=== PATIENT | male | born 1960 | race Caucasian/White ===

== ENCOUNTER 2020-07-27 09:48 | Inpatient (IN) | payer OTHER ==
[~2020-07-27] VITALS: Ht 188 cm; Wt 97.5 kg
[2020-07-27] MEDS ORDERED: SYNTHROID112 MCG ORAL (10:04)
[2020-07-27] MEDS ORDERED: BUPROPION XL300 MG ORAL (10:04)
[2020-07-27 10:09] VITALS: BP 113/71
--- NOTE | 2020-07-27 10:12 | NUR ---
ED Nurse Note: Patient walked in to ER c/o mid lower abd pain onset today at 0200. Patient reports eating frozen food at night prior to the start of the s/sx. Patient reports nausea and one emesis prior to arrival today. denies fever or cough. Presented AAO x4, VSS at this time.
[2020-07-27] MEDS ORDERED: DiphenhydrAMINE 50mg/ml Inj IVP ONE (10:30)
[2020-07-27] MEDS ORDERED: Metoclopramide 10mg/2ml Inj IVP ONE (10:30)
[2020-07-27] MEDS ORDERED: Morphine Sulfate 4mg/ml Inj (IV USE ONLY) IVP ONE (10:30)
--- NOTE | 2020-07-27 10:37 | Emergency Room Report ---
History of Present Illness General Chief Complaint: Abdominal Pain Source: Patient Present Illness HPI Patient woke up at 2 AM with right sided lower abdominal pain. The pain is constant and worsened. He rates the pain 7 or 8 at this time. Does not radiate. He is never had pain like this before. He tried to vomit but did not. He moved his bowels in 6 AM and they were normal without any blood. He denies any dysuria. The patient did not take any medication. Patient is status post cholecystectomy. Patient denies exposure to Covid positive contacts. No fevers, chills, sore throat, chest pain, palpitations, shortness of breath, joint pain, rashes, depression, anxiety, visual changes, dizziness, headache. Allergies: Coded Allergies: No Known Allergies (Unverified , 07/27/20) COVID-19 Screening Contact w/high risk pt: No Experienced COVID-19 symptoms?: No COVID-19 Testing performed [employer]: Yes COVID-19 Screening: Negative COVID-19 COVID-19 Testing Source: NEG Patient History Past Medical History: see triage record Past Surgical History: christopher Social History: Denies: smoking Social History Narrative Patient from home Reviewed Nursing Documentation: PMH: Agreed; PSxH: Agreed Nursing Documentation-PMH History Of Psychiatric Problem: Yes - depression Review of Systems All Other Systems: negative except mentioned in HPI Physical Exam Vital Signs Date Time Temp Pulse Resp B/P (MAP) Pulse Ox O2 Delivery O2 Flow Rate FiO2 07/27/20 09:50 97.7 58 18 113/71 (85) 99 Room Air Sp02 EP Interpretation: reviewed, normal General Appearance: well appearing, no apparent distress, GCS 15 Head: normocephalic Eyes: bilateral eye normal inspection, bilateral eye PERRL, bilateral eye EOMI ENT: moist mucus membranes Neck: supple Respiratory: lungs clear, normal breath sounds Cardiovascular #1: regular rate, rhythm Cardiovascular #2: 2+ radial (R) Gastrointestinal: normal inspection, normal bowel sounds, no mass, non- distended, guarding, rebound, tenderness - Right lower quadrant Genitourinary: no CVA tenderness Musculoskeletal: back normal, normal range of motion, gait/station normal Neurologic: alert, oriented x3, grossly normal Psychiatric: mood/affect normal Skin: no rash, warm/dry - Fully dressed Medical Decision Making Diagnostic Impression: Primary Impression: Acute appendicitis Qualified Codes: K35.80 - Unspecified acute appendicitis ER Course Patient presents with right lower quadrant pain began at 2 AM. Differential includes appendicitis, renal stone, urinary tract infection, diverticulitis and colitis amongst others. Evaluation with CT, EKG and labs.. Patient treated with IV hydration, Reglan, Benadryl and morphine. White count elevated. CMP unremarkable. Urinalysis unremarkable. EKG no injury. Patient still with pain after morphine. Dilaudid administered. CT scan with acute appendicitis. Rocephin ordered. Patient improved after Dilaudid. Admitted to the hospital and surgical con sultation requested. Laboratory Tests Test 07/27/20 10:33 White Blood Count 13.0 K/UL (4.8-10.8) H Red Blood Count 4.46 M/UL (4.70-6.10) L Hemoglobin 14.3 G/DL (14.2-18.0) Hematocrit 41.1 % (42.0-52.0) L Mean Corpuscular Volume 92 FL (80-99) Mean Corpuscular Hemoglobin 31.9 PG (27.0-31.0) H Mean Corpuscular Hemoglobin Concent 34.7 G/DL (32.0-36.0) Red Cell Distribution Width 12.9 % (11.6-14.8) Platelet Count 199 K/UL (150-450) Mean Platelet Volume 7.2 FL (6.5-10.1) Neutrophils (%) (Auto) % (45.0-75.0) Lymphocytes (%) (Auto) % (20.0-45.0) Monocytes (%) (Auto) % (1.0-10.0) Eosinophils (%) (Auto) % (0.0-3.0) Basophils (%) (Auto) % (0.0-2.0) Differential Total Cells Counted 100 Neutrophils % (Manual) 87 % (45-75) H Lymphocytes % (Manual) 10 % (20-45) L Monocytes % (Manual) 3 % (1-10) Eosinophils % (Manual) 0 % (0-3) Basophils % (Manual) 0 % (0-2) Band Neutrophils 0 % (0-8) Platelet Estimate Adequate Platelet Morphology Normal Red Blood Cell Morphology Normal Prothrombin Time 10.6 SEC (9.30-11.50) Prothrombin Time INR 1.0 (0.9-1.1) Activated Partial Thromboplast Time 23 SEC (23-33) Urine Color Yellow Urine Appearance Slightly cloudy Urine pH 5 (4.5-8.0) Urine Specific [place] 1.025 (1.005-1.035) Urine Protein 1+ (NEGATIVE) H Urine Glucose (UA) Negative (NEGATIVE) Urine Ketones Negative (NEGATIVE) Urine Blood 2+ (NEGATIVE) H Urine Nitrite Negative (NEGATIVE) Urine Bilirubin Negative (NEGATIVE) Urine Urobilinogen Normal MG/DL (0.0-1.0) Urine Leukocyte Esterase Negative (NEGATIVE) Urine RBC 0-2 /HPF (0 - 0) H Urine WBC 0 /HPF (0 - 0) Urine Squamous Epithelial Cells Occasional /LPF Urine Amorphous Sediment Many /LPF (NONE) H Urine Bacteria Occasional /HPF (NONE) Sodium Level 140 MMOL/L (136-145) Potassium Level 4.6 MMOL/L (3.5-5.1) Chloride Level 106 MMOL/L (98-107) Carbon Dioxide Level 29 MMOL/L (21-32) Anion Gap 5 mmol/L (5-15) Blood Urea Nitrogen 17 mg/dL (7-18) Creatinine 1.0 MG/DL (0.55-1.30) Estimated Glomerular Filtration Rate > 60 mL/min (>60) Glucose Level 130 MG/DL (74-106) H Calcium Level 9.1 MG/DL (8.5-10.1) Total Bilirubin 0.5 MG/DL (0.2-1.0) Aspartate Amino Transferase (AST) 26 U/L (15-37) Alanine Aminotransferase (ALT) 33 U/L (12-78) Alkaline Phosphatase 72 U/L (46-116) Total Protein 7.9 G/DL (6.4-8.2) Albumin 4.1 G/DL (3.4-5.0) Globulin 3.8 g/dL Albumin/Globulin Ratio 1.1 (1.0-2.7) Lipase 146 U/L (73-393) Microbiology Date/Time Source Procedure Growth Status 07/27/20 11:45 Nasopharynx SARS-CoV-2 RdRp Gene Assay - Final Complete EKG Diagnostic Results Rate: normal Rhythm: NSR ST Segments: no acute changes - Nonspecific interventricular block Rhythm Strip Diag. Results EP Interpretation: yes Rhythm: NSR, no PVC's, no ectopy CT/MRI/US Diagnostic Results CT/MRI/US Diagnostic Results : Imaging Test Ordered: Abdomen and pelvis Impression IMPRESSION: Inflamed appendix consistent with an acute appendicitis without free air or obstruction or abscess. Last Vital Signs Date Time Temp Pulse Resp B/P (MAP) Pulse Ox O2 Delivery O2 Flow Rate FiO2 07/27/20 14:40 98.0 71 16 122/69 (86) 97 07/27/20 14:33 Room Air Status: improved Disposition: ADMITTED INPATIENT Condition: Serious Referrals: NON PHYSICIAN (PCP) Roberto Marino MD Jul 27, 2020 10:37
--- NOTE | 2020-07-27 10:55 | NUR ---
ED Nurse Note: patient was taken to CT via delvisritzel
[2020-07-27 11:06] LABS: APPEARANCE,URINE SLIGHTLY CLOUDY; BILIRUBIN, URINE NEGATIVE (NEGATIVE); GLUCOSE, URINE (UA) NEGATIVE (NEGATIVE); KETONES,URINE NEGATIVE (NEGATIVE); LEUKOCYTE ESTERASE ,URINE NEGATIVE (NEGATIVE); NITRITE,URINE NEGATIVE (NEGATIVE); PH,URINE 5 (4.5-8.0); PROTEIN,URINE 1+ (NEGATIVE); UROBILINOGEN,URINE NORMAL MG/DL (0.0-1.0)
[2020-07-27 11:08] LABS: HEMATOCRIT 41.1 % (42.0-52.0); HEMOGLOBIN 14.3 G/DL (14.2-18.0); MEAN CORPUSCULAR VOLUME 92 FL (80-99); PLATELET COUNT 199 K/UL (150-450); RED BLOOD COUNT 4.46 M/UL (4.70-6.10); RED CELL DISTRIBUTION WIDTH 12.9 % (11.6-14.8)
[2020-07-27 11:19] LABS: ANION GAP 5 mmol/L (5-15); BLOOD UREA NITROGEN 17 mg/dL (7-18); CALCIUM 9.1 MG/DL (8.5-10.1); CARBON DIOXIDE 29 MMOL/L (21-32); CHLORIDE 106 MMOL/L (98-107); POTASSIUM 4.6 MMOL/L (3.5-5.1); SODIUM 140 MMOL/L (136-145)
[2020-07-27 11:24] LABS: ALANINE AMINOTRANSFERASE 33 U/L (12-78); ALBUMIN 4.1 G/DL (3.4-5.0); ALBUMIN/GLOBULIN RATIO 1.1 (1.0-2.7); ALKALINE PHOSPHATASE 72 U/L (46-116); ASPARTATE AMINO TRANSFERASE 26 U/L (15-37); BILIRUBIN,TOTAL 0.5 MG/DL (0.2-1.0)
--- NOTE | 2020-07-27 11:39 | Diagnostic Imaging Report ---
CT ABDOMEN + PELVIS Without Contrast HISTORY: Abdominal pain TECHNIQUE: One or more of the following dose reduction techniques were used: automated exposure control, adjustment of the mA and/or kV according to patient size, use of iterative reconstruction technique. Axial CT images of the abdomen and pelvis obtained without contrast with coronal and sagittal reconstructions. One or more of the following dose reduction techniques were used: automated exposure control, adjustment of the mA and/or kV according to patient size, use of iterative reconstruction technique. Total Exam volume computed tomography dose index (CTDIvol) = 9.4 mGy and Dose Length Product (DLP) = 510.5mGY-c COMPARISON: None FINDINGS: The lung bases are clear. The liver and spleen are normal in size and free of mass lesions. The bile ducts and pancreas are normal. The adrenal gland are unremarkable. The kidneys are normal in size and contour. No stones or hydronephrosis. Mildly inflamed appendix with adjacent stranding and appendiceal diameter of 1.2 cm. No free air or free fluid or bowel obstruction. Aorta is normal caliber. No adenopathy or extraluminal air. The osseous structures are intact. Status post cholecystectomy. Fixation hardware in the left femur. Small cyst in the left kidney noted measuring 1.3 cm. IMPRESSION: Inflamed appendix consistent with an acute appendicitis without free air or obstruction or abscess.
[2020-07-27 11:42] LABS: COLOR,URINE YELLOW
[2020-07-27] MEDS ORDERED: cefTRIAXone 1 GM in NS 55 ML IVPB ONE (12:00)
[2020-07-27] MEDS ORDERED: HYDROmorphone 1mg/ml Carpuject IVP ONE (12:00)
--- NOTE | 2020-07-27 14:13 | NUR ---
ED Nurse Note: report was given to KRISTEL Christie
--- NOTE | 2020-07-27 14:30 | NUR ---
NURSE NOTES: Patient received from ER via ravinger at 1430, on RA, in stable condition. Right lower abdominal pain 3/10, denies need for pain medication at this time. No NV. RAC saline lock intact, site asymptomatic. Skin assessed, no impairment. All belongings reviewed, signed by patient. Dr. Barbosa notified for admission orders. Oriented patient to room, medical equipment and call light, verbalized understanding. Call light in reach, bed in lowest position, will continue to monitor.
--- NOTE | 2020-07-27 14:31 | NUR ---
ED Nurse Note: Patient was transfered to MS unit due to apendisitis. Patient was transfered to thr unit via gurney with all belongings. Patient AAO x4, VSS at this time, skin is intact warm to touch.
[2020-07-27 14:40] VITALS: BP 122/69
[2020-07-27 16:00] VITALS: BP 130/72
--- NOTE | 2020-07-27 16:20 | NUR ---
NURSE NOTES: Discussed with pharmacy, home medications have not been taken yet and patient hasn't eaten anything yet either, okay for synthroid and wellbutrin, patient aware verbalized understanding.
[2020-07-27] MEDS: BuPROPion XL 150mg tab ORAL SCH (16:34)
[2020-07-27] MEDS ORDERED: Morphine Sulfate 2mg/ml Inj(IV/IM USE ONLY) IVP PRN (18:15)
--- NOTE | 2020-07-27 18:19 | Consultation ---
History of Present Illness General Date patient seen: Jul 27, 2020 Reason for Hospitalization: Abdominal Pain Present Illness HPI 59 year old male presented to [facility] ED with c/o abdominal pain lower / RLQ since 2am. nausea, no emesis. pain 8/10 without radiation. in ED noted to have leukocytosis and CT consistent with acute uncomplicated appendicitis. surgery called to evaluate and assist with care. patient seen, chart reviewed, patient examined. Allergies: Coded Allergies: No Known Allergies (Unverified , 07/27/20) COVID-19 Screening Contact w/high risk pt: No Experienced COVID-19 symptoms?: No Medication History Scheduled Bupropion Hcl* (Wellbutrin*), 300 MG ORAL DAILY, (Reported) Levothyroxine Sodium* (Synthroid*), 112 MCG ORAL DAILY, (Reported) Patient History History Provided By: Patient, Medical Record, PMD Healthcare decision maker Resuscitation status Advanced Directive on File Past Medical/Surgical History Past Medical/Surgical History: (1) Acute appendicitis Review of Systems Review of Symptoms General ROS: no weight loss or fever Psychological ROS: no depression or mood changes, no memory loss Ophthalmic ROS: no visual changes or eye irritation ENT ROS: no nasal congestion, hearing loss, dizziness Allergy and Immunology ROS: no allergic symptoms or urticaria Hematological and Lymphatic ROS: no swollen glands, unusual bleeding or bruising Endocrine ROS: no polyuria, polydipsia, weight changes, temperature intolerance Respiratory ROS: no cough, shortness of breath, or wheezing Cardiovascular ROS: no chest pain or dyspnea on exertion Gastrointestinal ROS: + abdominal pain, no bright red blood in stool. Musculoskeletal ROS: no myalgias or arthralgias Neurological ROS: no TIA or stroke symptoms Dermatological ROS: no new or changing skin lesions, rashes or pruritis Physical Exam Physical Exam General appearance: alert, cooperative, no distress, appears stated age Head: Normocephalic, without obvious abnormality, atraumatic Eyes: conjunctivae/corneas clear. PERRL, EOM's intact. Fundi benign Throat: Lips, mucosa, and tongue normal. Teeth and gums normal Neck: supple, symmetrical, trachea midline, no adenopathy, thyroid: not enlarged, symmetric, no tenderness/mass/nodules, no carotid bruit and no JVD Lungs: clear to auscultation bilaterally Heart: regular rate and rhythm, S1, S2 normal, no murmur, click, rub or gallop Abdomen: soft, RLQ-tender. Bowel sounds normal. No masses, no organomegaly Extremities: extremities normal, atraumatic, no cyanosis or edema Pulses: 2+ and symmetric Skin: Skin color, texture, turgor normal. No rashes or lesions Neurologic: Grossly normal Last 24 Hour Vital Signs Date Time Temp Pulse Resp B/P (MAP) Pulse Ox O2 Delivery O2 Flow Rate FiO2 07/27/20 16:00 98.0 54 16 130/72 (91) 97 07/27/20 14:40 98.0 71 16 122/69 (86) 97 07/27/20 14:33 97.7 18 113/71 99 Room Air 07/27/20 12:32 97.7 07/27/20 11:24 97.7 07/27/20 10:09 58 18 Room Air 07/27/20 10:09 97.7 18 113/71 99 Room Air 07/27/20 09:50 97.7 58 18 113/71 (85) 99 Room Air Laboratory Tests Test 07/27/20 10:33 White Blood Count 13.0 K/UL (4.8-10.8) H Red Blood Count 4.46 M/UL (4.70-6.10) L Hemoglobin 14.3 G/DL (14.2-18.0) Hematocrit 41.1 % (42.0-52.0) L Mean Corpuscular Volume 92 FL (80-99) Mean Corpuscular Hemoglobin 31.9 PG (27.0-31.0) H Mean Corpuscular Hemoglobin Concent 34.7 G/DL (32.0-36.0) Red Cell Distribution Width 12.9 % (11.6-14.8) Platelet Count 199 K/UL (150-450) Mean Platelet Volume 7.2 FL (6.5-10.1) Neutrophils (%) (Auto) % (45.0-75.0) Lymphocytes (%) (Auto) % (20.0-45.0) Monocytes (%) (Auto) % (1.0-10.0) Eosinophils (%) (Auto) % (0.0-3.0) Basophils (%) (Auto) % (0.0-2.0) Differential Total Cells Counted 100 Neutrophils % (Manual) 87 % (45-75) H Lymphocytes % (Manual) 10 % (20-45) L Monocytes % (Manual) 3 % (1-10) Eosinophils % (Manual) 0 % (0-3) Basophils % (Manual) 0 % (0-2) Band Neutrophils 0 % (0-8) Platelet Estimate Adequate Platelet Morphology Normal Red Blood Cell Morphology Normal Prothrombin Time 10.6 SEC (9.30-11.50) Prothromb Time International Ratio 1.0 (0.9-1.1) Activated Partial Thromboplast Time 23 SEC (23-33) Urine Color Yellow Urine Appearance Slightly cloudy Urine pH 5 (4.5-8.0) Urine Specific [place] 1.025 (1.005-1.035) Urine Protein 1+ (NEGATIVE) H Urine Glucose (UA) Negative (NEGATIVE) Urine Ketones Negative (NEGATIVE) Urine Blood 2+ (NEGATIVE) H Urine Nitrite Negative (NEGATIVE) Urine Bilirubin Negative (NEGATIVE) Urine Urobilinogen Normal MG/DL (0.0-1.0) Urine Leukocyte Esterase Negative (NEGATIVE) Urine RBC 0-2 /HPF (0 - 0) H Urine WBC 0 /HPF (0 - 0) Urine Squamous Epithelial Cells Occasional /LPF Urine Amorphous Sediment Many /LPF (NONE) H Urine Bacteria Occasional /HPF (NONE) Sodium Level 140 MMOL/L (136-145) Potassium Level 4.6 MMOL/L (3.5-5.1) Chloride Level 106 MMOL/L (98-107) Carbon Dioxide Level 29 MMOL/L (21-32) Anion Gap 5 mmol/L (5-15) Blood Urea Nitrogen 17 mg/dL (7-18) Creatinine 1.0 MG/DL (0.55-1.30) Estimat Glomerular Filtration Rate > 60 mL/min (>60) Glucose Level 130 MG/DL (74-106) H Calcium Level 9.1 MG/DL (8.5-10.1) Total Bilirubin 0.5 MG/DL (0.2-1.0) Aspartate Amino Transf (AST/SGOT) 26 U/L (15-37) Alanine Aminotransferase (ALT/SGPT) 33 U/L (12-78) Alkaline Phosphatase 72 U/L (46-116) Total Protein 7.9 G/DL (6.4-8.2) Albumin 4.1 G/DL (3.4-5.0) Globulin 3.8 g/dL Albumin/Globulin Ratio 1.1 (1.0-2.7) Lipase 146 U/L (73-393) Microbiology Date/Time Source Procedure Growth Status 07/27/20 11:45 Nasopharynx SARS-CoV-2 RdRp Gene Assay - Final Complete Height (Feet): 6 Height (Inches): 3.00 Weight (Pounds): 215 Medications Current Medications Medications (Trade) Dose Ordered Sig/Taylor Route PRN Reason Start Time Stop Time Status Last Admin Dose Admin Acetaminophen (Tylenol) 650 mg Q4H PRN ORAL Mild Pain (Pain Scale 1-3) 07/27/20 15:45 08/26/20 15:44 Bupropion HCl (Wellbutrin XL) 300 mg DAILY ORAL 07/27/20 16:30 08/26/20 16:29 07/27/20 16:34 Levofloxacin 100 ml @ 100 mls/hr Q24H IVPB 07/27/20 17:00 08/03/20 16:59 07/27/20 18:09 Levothyroxine Sodium (Synthroid) 112 mcg DAILY@0630 ORAL 07/27/20 16:30 08/26/20 16:29 07/27/20 16:34 Ondansetron HCl (Zofran) 4 mg Q6H PRN IVP Nausea & Vomiting 07/27/20 15:45 08/26/20 15:44 Pantoprazole (Protonix) 40 mg DAILY ORAL 07/27/20 15:45 08/26/20 15:44 07/27/20 16:17 Assessment/Plan Problem List: (1) Acute appendicitis Assessment & Plan: 59M acute appendicitis npo iv fluids iv abx consent to OR for lap vs open appy thank you ICD Codes: K35.80 - Unspecified acute appendicitis SNOMED: [id number] Xavier Pizarro Jul 27, 2020 18:19
--- NOTE | 2020-07-27 18:19 | Pre-Procedure Note/Attestation ---
Pre-Procedure Note/Attestation Complete Prior to Procedure Procedure Narrative: laparoscopic vs open appendectomy Indications for Procedure Pre-Operative Diagnosis: acute appendicitis Attestation I attest that I discussed the nature of the procedure; its benefits; risks and complications; and alternatives (and the risks and benefits of such alternatives), prior to the procedure, with the patient (or the patient's legal territory account representative). I attest that, if there was a reasonable possibility of needing a blood transfusion, the patient (or the patient's legal territory account representative) was given the [facility] standardized written summary, pursuant to the Ciaran Erika Blood Safety Act ([place] Health and Safety Code # 1645, as amended). I attest that I re-evaluated the patient just prior to the surgery and that there has been no change in the patient's H&P, except as documented below: Xavier Pizarro Jul 27, 2020 18:19
--- NOTE | 2020-07-27 19:36 | NUR ---
NURSE HAND-OFF: Important Events on Shift:ER admission at 1430 Patient Status: stable Diet: NPO except ice chips/sips with meds Pending Orders: Consent needs to be signed, SCDs need to be applied Pending Results/Labs: CBC CMP 07/28 Pending MD notification:none Latest Vital Signs: Temperature 98.0 , Pulse 54 , B/P 130 /72 , Respiratory Rate 16 , O2 SAT 97 , Room Air, O2 Flow Rate . Vital Sign Comment: none Latest Vizcaino Fall Score: 35 Fall Risk: Medium Risk Safety Measures: Call light Within Reach, Bed Alarm , Side Rails Side Rails x2, Bed position Low and Locked. Fall Precautions: Yellow Socks Door Sign Patient Fall Education Report given to Lali HUMPHRIES/Theron HUMPHRIES.
--- NOTE | 2020-07-27 19:45 | NUR ---
NURSE NOTES: Received report from Shahnaz HUMPHRIES. Patient is awake, alert, and oriented x4. Breathing is even and unlabored. Patient denies pain at the moment. IV on right AC intact and patent with no bleeding noted. IVF running as ordered. Bed low and locked. Call light within reach. Got the consent signed by patient for procedure tomorrow. Patient is NPO.
[2020-07-27] MEDS: Piperacillin/Tazobactam 3.375 GM in NS 110 ML IVPB SCH (19:47)
[2020-07-27 20:30] VITALS: BP 122/63
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
[2020-07-28] VITALS (15 sets, daily range): BP systolic 114–138; BP diastolic 66–74
[2020-07-28] MEDS: Piperacillin/Tazobactam 3.375 GM in NS 110 ML IVPB SCH ×3 (05:36→22:19)
[2020-07-28 05:53] LABS: BASOPHILS % (AUTO) 0.7 % (0.0-2.0); EOSINOPHILS % (AUTO) 0.5 % (0.0-3.0); HEMOGLOBIN 12.6 G/DL (14.2-18.0); LYMPHOCYTES % (AUTO) 22.9 % (20.0-45.0); MEAN CORPUSCULAR VOLUME 98 FL (80-99); MONOCYTES % (AUTO) 11.1 % (1.0-10.0); NEUTROPHILS % (AUTO) 64.9 % (45.0-75.0); PLATELET COUNT 152 K/UL (150-450); RED BLOOD COUNT 3.79 M/UL (4.70-6.10); RED CELL DISTRIBUTION WIDTH 12.2 % (11.6-14.8); WHITE BLOOD COUNT 6.2 K/UL (4.8-10.8)
[2020-07-28 06:25] LABS: ALANINE AMINOTRANSFERASE 99 U/L (12-78); ALBUMIN 3.1 G/DL (3.4-5.0); ALKALINE PHOSPHATASE 74 U/L (46-116); ANION GAP 2 mmol/L (5-15); ASPARTATE AMINO TRANSFERASE 99 U/L (15-37); BILIRUBIN,TOTAL 0.9 MG/DL (0.2-1.0); BLOOD UREA NITROGEN 10 mg/dL (7-18); CALCIUM 8.2 MG/DL (8.5-10.1); CARBON DIOXIDE 28 MMOL/L (21-32); CHLORIDE 110 MMOL/L (98-107); POTASSIUM 4.1 MMOL/L (3.5-5.1); SODIUM 140 MMOL/L (136-145)
--- NOTE | 2020-07-28 07:41 | NUR ---
NURSE HAND-OFF: Important Events on Shift:consent signed Patient Status: stable Diet: NPO except ice chips & PO meds Pending Orders: For surgery today Pending Results/Labs:none Pending MD notification:none Latest Vital Signs: Temperature 98.3 , Pulse 60 , B/P 114 /67 , Respiratory Rate 18 , O2 SAT 95 , Room Air, O2 Flow Rate . Vital Sign Comment: none Latest Vizcaino Fall Score: 35 Fall Risk: Medium Risk Safety Measures: Call light Within Reach, Bed Alarm , Side Rails Side Rails x2, Bed position Low and Locked. Fall Precautions: Patient Fall Education Report given to KRISTEL Rangel.
--- NOTE | 2020-07-28 08:00 | NUR ---
NURSE NOTES: Received report from KRISTEL Escalera. Rounding done with outgoing nurse. Pt a/o x 4, in bed. No SOB noted. Denies any pain at this time. Pt is NPO for appendectomy. Rt AC IV access is in placed. Bed in lowest position, call light within reach. Will continue to monitor.
[2020-07-28] MEDS: BuPROPion XL 150mg tab ORAL SCH (09:05)
[2020-07-28] MEDS ORDERED: Tubing IV Secondary IV ONE (09:33)
[2020-07-28] MEDS ORDERED: NS 275ml ONE (09:33)
[2020-07-28] MEDS ORDERED: LR 1000ml ONE (10:06)
[2020-07-28] MEDS ORDERED: EPINEPHrine 1mg/1ml Amp ONE (10:14)
[2020-07-28] MEDS ORDERED: Lidocaine 1%/ 10mg/ml/EPI 0.01mg/ml 20ml INJ ONE (10:15)
[2020-07-28] MEDS ORDERED: Bacitracin 50000 Units Vial ONE (10:15)
[2020-07-28] MEDS ORDERED: Bupivacaine 0.25% Inj 30ml INJ ONE (10:15)
--- NOTE | 2020-07-28 10:18 | NUR ---
NURSE NOTES: Patient is off the unit for appendectomy in stable condition.
[2020-07-28] MEDS ORDERED: Sodium Chloride 10ml vial INJ ONE (10:24)
[2020-07-28] MEDS ORDERED: Lidocaine 1% MPF 10mg/ml 5ml ONE (10:24)
--- NOTE | 2020-07-28 10:26 | Anethesia Preoperative Eval ---
Anesthesia Pre-op PMH/ROS General Date of Evaluation: Jul 28, 2020 Time of Evaluation: 10:06 Anesthesiologist: Yana ASA Score: ASA 2 - Emergency Mallampati Score Class I : Soft palate, uvula, fauces, pillars visible Class II: Soft palate, uvula, fauces visible Class III: Soft palate, base of uvula visible Class IV: Only hard plate visible Mallampati Classification: Class II Surgeon: Juarez Diagnosis: Appendicitis Surgical Procedure: Laparoscopic Appendectomy Anesthesia History: none Family History: no anesthesia problems Allergies: Coded Allergies: No Known Allergies (Unverified , 07/27/20) Medications: see eMAR Patient NPO?: Yes Past Medical History Neurologic/Psychiatric: Reports: depression/anxiety Endocrine: Reports: hypothyroidism PSxH Narrative: L Hip Sx Anesthesia Pre-op Phys. Exam Physician Exam Last Vital Signs Date Time Temp Pulse Resp B/P (MAP) Pulse Ox O2 Delivery O2 Flow Rate FiO2 07/28/20 08:00 98.1 61 18 138/69 (92) 95 07/27/20 21:00 Room Air Constitutional: NAD Neurologic: CN 2-12 intact Cardiovascular: RRR Respiratory: CTA Gastrointestinal: S/NT/ND Airway Exam Mallampati Score: Class II MO: full ROM: full Teeth: missing, intact Anesthesia Pre-op A/P Labs Hematology Test 07/27/20 10:33 07/28/20 05:10 White Blood Count 13.0 K/UL (4.8-10.8) H 6.2 K/UL (4.8-10.8) # Red Blood Count 4.46 M/UL (4.70-6.10) L 3.79 M/UL (4.70-6.10) L Hemoglobin 14.3 G/DL (14.2-18.0) 12.6 G/DL (14.2-18.0) L Hematocrit 41.1 % (42.0-52.0) L 37.0 % (42.0-52.0) L Mean Corpuscular Volume 92 FL (80-99) 98 FL (80-99) Mean Corpuscular Hemoglobin 31.9 PG (27.0-31.0) H 33.1 PG (27.0-31.0) H Mean Corpuscular Hemoglobin Concent 34.7 G/DL (32.0-36.0) 33.9 G/DL (32.0-36.0) Red Cell Distribution Width 12.9 % (11.6-14.8) 12.2 % (11.6-14.8) Platelet Count 199 K/UL (150-450) 152 K/UL (150-450) Mean Platelet Volume 7.2 FL (6.5-10.1) 7.3 FL (6.5-10.1) Neutrophils (%) (Auto) % (45.0-75.0) 64.9 % (45.0-75.0) Lymphocytes (%) (Auto) % (20.0-45.0) 22.9 % (20.0-45.0) Monocytes (%) (Auto) % (1.0-10.0) 11.1 % (1.0-10.0) H Eosinophils (%) (Auto) % (0.0-3.0) 0.5 % (0.0-3.0) Basophils (%) (Auto) % (0.0-2.0) 0.7 % (0.0-2.0) Differential Total Cells Counted 100 Neutrophils % (Manual) 87 % (45-75) H Lymphocytes % (Manual) 10 % (20-45) L Monocytes % (Manual) 3 % (1-10) Eosinophils % (Manual) 0 % (0-3) Basophils % (Manual) 0 % (0-2) Band Neutrophils 0 % (0-8) Platelet Estimate Adequate Platelet Morphology Normal Red Blood Cell Morphology Normal Coagulation Test 07/27/20 10:33 Prothrombin Time 10.6 SEC (9.30-11.50) Prothromb Time International Ratio 1.0 (0.9-1.1) Activated Partial Thromboplast Time 23 SEC (23-33) Chemistry Test 07/27/20 10:33 07/28/20 05:10 Sodium Level 140 MMOL/L (136-145) 140 MMOL/L (136-145) Potassium Level 4.6 MMOL/L (3.5-5.1) 4.1 MMOL/L (3.5-5.1) Chloride Level 106 MMOL/L (98-107) 110 MMOL/L (98-107) H Carbon Dioxide Level 29 MMOL/L (21-32) 28 MMOL/L (21-32) Anion Gap 5 mmol/L (5-15) 2 mmol/L (5-15) L Blood Urea Nitrogen 17 mg/dL (7-18) 10 mg/dL (7-18) Creatinine 1.0 MG/DL (0.55-1.30) 1.0 MG/DL (0.55-1.30) Estimat Glomerular Filtration Rate > 60 mL/min (>60) > 60 mL/min (>60) Glucose Level 130 MG/DL (74-106) H 97 MG/DL (74-106) Calcium Level 9.1 MG/DL (8.5-10.1) 8.2 MG/DL (8.5-10.1) L Total Bilirubin 0.5 MG/DL (0.2-1.0) 0.9 MG/DL (0.2-1.0) Aspartate Amino Transf (AST/SGOT) 26 U/L (15-37) 99 U/L (15-37) H Alanine Aminotransferase (ALT/SGPT) 33 U/L (12-78) 99 U/L (12-78) H Alkaline Phosphatase 72 U/L (46-116) 74 U/L (46-116) Total Protein 7.9 G/DL (6.4-8.2) 6.3 G/DL (6.4-8.2) L Albumin 4.1 G/DL (3.4-5.0) 3.1 G/DL (3.4-5.0) L Globulin 3.8 g/dL 3.2 g/dL Albumin/Globulin Ratio 1.1 (1.0-2.7) 1.0 (1.0-2.7) Lipase 146 U/L (73-393) Risk Assessment & Plan Assessment: ASA 2E Plan: GA, SED, GlideScope Status Change Before Surgery: No Pre-Antibiotics Dru Grams Ancef IV Given Within 1 Hr of Incision: Yes Time Given: 10:46 Nael Millan MD Jul 28, 2020 10:26
[2020-07-28] MEDS ORDERED: fentaNYL 100 mcg/2 mL IV ONE (10:27)
[2020-07-28] MEDS ORDERED: Acetaminophen (Non formulary) 100 ML IV ONE (10:45)
--- NOTE | 2020-07-28 11:03 | Immediate Post-Op Evaluation ---
Immediate Post-Op Evalulation Immediate Post-Op Evalulation Procedure: Laparoscopic Appendectomy Date of Evaluation: Jul 28, 2020 Time of Evaluation: 11:47 IV Fluids: 300 LR Blood Products: 0 Estimated Blood Loss: 10 Urinary Output: 0 Blood Pressure Systolic: 137 Blood Pressure Diastolic: 73 Pulse Rate: 63 Respiratory Rate: 16 O2 Sat by Pulse Oximetry: 98 Temperature (Fahrenheit): 98.3 Pain Score (1-10): 2 Nausea: No Vomiting: No Complications 0 Patient Status: awake, reacts, patent, extubated, none Hydration Status: adequate Dru Grams Ancef IV Given Within 1 Hr of Incision: Yes Time Given: 10:46 Nael Millan MD Jul 28, 2020 11:03
--- NOTE | 2020-07-28 11:04 | 48 Hour Post Anesthesia Eval ---
Post Anesthesia Evaluation Procedure: Laparoscopic Appendectomy Date of Evaluation: Jul 28, 2020 Time of Evaluation: 13:54 Blood Pressure Systolic: 136 0: 72 Pulse Rate: 67 Respiratory Rate: 18 Temperature (Fahrenheit): 98.4 O2 Sat by Pulse Oximetry: 99 Airway: patent Nausea: No Vomiting: No Pain Intensity: 2 Hydration Status: adequate Cardiopulmonary Status: Stable Mental Status/LOC: patient returned to baseline Follow-up Care/Observations: 0 Post-Anesthesia Complications: 0 Follow-up care needed: N/A Nael Millan MD Jul 28, 2020 11:04
[2020-07-28] MEDS ORDERED: Neostigmine 1mg/ml 10ml Inj ONE (11:09)
[2020-07-28] MEDS ORDERED: Glycopyrrolate 0.2mg/ml 1ml Vial ONE (11:09)
--- NOTE | 2020-07-28 11:29 | Brief Operative Note ---
Immediate Post Operative Note Operative Note Pre-op Diagnosis: acute appendicitis Procedure: lap appy umbilical hernia repair open without mesh Post-op Diagnosis: acute appy Surgeon: jer Regional Sales Trainer: [place] Anesthesia: general, local Specimen: yes Complications: none Condition: stable Fluids: see Estimated Blood Loss: minimal Drains: none Implant(s) used?: No Xavier Pizarro Jul 28, 2020 11:28
[2020-07-28] MEDS ORDERED: HYDROcodone/Acetamin 10/325 tab ORAL PRN (11:30)
[2020-07-28] MEDS ORDERED: Milk of Magnesia 30ml Ud ORAL PRN (11:30)
[2020-07-28] MEDS ORDERED: Morphine Sulfate 4mg/ml Inj (IV USE ONLY) IVP PRN (11:30)
--- NOTE | 2020-07-28 11:54 | NUR ---
NURSE NOTES: Received phone report from [facility] MANAGER LOCATION.
--- NOTE | 2020-07-28 12:00 | General Progress Note ---
Subjective Constitutional: Reports: no symptoms HEENT: Reports: no symptoms Cardiovascular: Reports: no symptoms Respiratory: Reports: no symptoms Gastrointestinal/Abdominal: Reports: abdominal pain, nausea Genitourinary: Reports: no symptoms Neurologic/Psychiatric: Reports: no symptoms Endocrine: Reports: no symptoms Allergies: Coded Allergies: No Known Allergies (Unverified , 07/27/20) Subjective doing ok Objective Last 24 Hour Vital Signs Date Time Temp Pulse Resp B/P (MAP) Pulse Ox O2 Delivery O2 Flow Rate FiO2 07/28/20 11:46 59 18 126/72 99 Simple Mask 6.0 07/28/20 11:41 60 17 126/74 99 Simple Mask 6.0 07/28/20 11:36 98.3 63 16 137/73 98 Simple Mask 6.0 07/28/20 11:33 67 18 99 07/28/20 11:32 63 16 98 07/28/20 08:00 98.1 61 18 138/69 (92) 95 07/28/20 04:00 98.3 60 18 114/67 (83) 95 07/27/20 21:00 Room Air 07/27/20 20:30 98.4 66 18 122/63 (82) 97 07/27/20 16:00 98.0 54 16 130/72 (91) 97 07/27/20 14:40 Room Air 07/27/20 14:40 98.0 71 16 122/69 (86) 97 07/27/20 14:33 97.7 18 113/71 99 Room Air 07/27/20 12:32 97.7 Intake and Output 07/27/20 07/28/20 19:00 07:00 Intake Total 200 ml 1030.0 ml Balance 200 ml 1030.0 ml Intake Oral 200 ml 120 ml IV Total 910.0 ml # Voids 1 3 Laboratory Tests 07/28/20 05:10: White Blood Count 6.2#, Red Blood Count 3.79L, Hemoglobin 12.6L, Hematocrit 37.0L, Mean Corpuscular Volume 98, Mean Corpuscular Hemoglobin 33.1H, Mean Corpuscular Hemoglobin Concent 33.9, Red Cell Distribution Width 12.2, Platelet Count 152, Mean Platelet Volume 7.3, Neutrophils (%) (Auto) 64.9, Lymphocytes (%) (Auto) 22.9, Monocytes (%) (Auto) 11.1H, Eosinophils (%) (Auto) 0.5, Basophils (%) (Auto) 0.7, Sodium Level 140, Potassium Level 4.1, Chloride Level 110H, Carbon Dioxide Level 28, Anion Gap 2L, Blood Urea Nitrogen 10, Creatinine 1.0, Estimat Glomerular Filtration Rate > 60, Glucose Level 97, Calcium Level 8.2L, Total Bilirubin 0.9, Aspartate Amino Transf (AST/SGOT) 99H, Alanine Aminotransferase (ALT/SGPT) 99H, Alkaline Phosphatase 74, Total Protein 6.3L, Albumin 3.1L, Globulin 3.2, Albumin/Globulin Ratio 1.0 Height (Feet): 6 Height (Inches): 2.00 Weight (Pounds): 215 General Appearance: alert EENT: PERRL/EOMI Neck: supple Cardiovascular: normal rate Respiratory/Chest: lungs clear Abdomen: soft, tender Pelvis: normal external exam Genitourinary/Rectal: normal genital exam Extremities: non-tender Assessment/Plan Status: doing well Assessment/Plan: 1 ac appendicitis for surgery 2 hypothyriodism 3 s/p orif rt femur npo ivf iv abx surgery on the case cont pain meds and Meng Campos MD Jul 28, 2020 12:00
--- NOTE | 2020-07-28 12:40 | NUR ---
NURSE NOTES: Patient arrived unit after Lap appendectomy. No SOB noted. Denies any pain at this time. Rt AC IV access is patent. O2 2L/min is on. SCD is on. Will continue to monitor.
[2020-07-28] MEDS: HYDROcodone/Acetamin 5/325 tab ORAL PRN ×2 (13:40→22:18)
--- NOTE | 2020-07-28 14:21 | NUR ---
CASE MANAGEMENT:INITIAL REVIEW 59 YR OLD FEMALE PRESENTED TO ED FROM HOME CC;ABDOMINAL PAIN SI;ACUTE APPENDICITIS 97.7 58 18 122/69 97% ON RA WBC 13.0 UA+ PROTEIN, KETONES, RBC, AMORPHOUS SEDIMENT COVID RAPID ~ NEGATIVE ABD/PELVIS CT ~ Inflamed appendix consistent with an acute appendicitis without free air or obstruction or abscess. IS;REGLAN IV MORPHINE SULFATE IV IVF NS BOLUS BENADRYL IV ROCEPHIN IV ADMITTED TO MED SURG MED SURG STATUS DCP;PATIENT IS FROM HOME PLAN; LAP APPY VS OPEN
--- NOTE | 2020-07-28 16:15 | Operative Note - Dictated ---
DATE OF OPERATION: 07/28/2020 PREOPERATIVE DIAGNOSES: 1. Acute appendicitis. 2. Umbilical hernia. POSTOPERATIVE DIAGNOSES: 1. Acute appendicitis. 2. Umbilical hernia. OPERATION PERFORMED: 1. Laparoscopic appendectomy. 2. Umbilical hernia repair, open without mesh. ATTENDING SURGEON: Xavier Pizarro MD FOUNTAIN CLERK SURGEON: Deysi Loreod MD ANESTHESIA: General RESIDENTIAL DIRECTOR. ANESTHESIOLOGIST: Nael Millan MD ESTIMATED BLOOD LOSS: Minimal. IV FLUIDS: Please see anesthesia records. COMPLICATIONS: None. DRAINS: None. COUNTS: Sponge and needle count correct x2. WOUND CLASSIFICATION: Class 3. SPECIMENS: Appendix. INDICATIONS FOR PROCEDURE: This is a very pleasant 59-year-old male who presented to [facility] with abdominal pain, right lower quadrant lower pelvic for 1 day with associated nausea. No emesis. CT scan consistent with acute uncomplicated appendicitis, leukocytosis identified on laboratory work. Patient was admitted and scheduled for operating room urgently. Risks, benefits, and alternatives discussed with patient in detail in the preop setting. I discussed with patient on examination, his right lower quadrant tenderness, CT findings, leukocytosis, the clinical indication, findings of acute appendicitis, and the rationale for surgical intervention. Furthermore on the physical examination, we identified patient to have an umbilical hernia. It was a fat filled hernia that would reduce, but immediately returned an "outie." In discussing the operative technique, I discussed the potential utilization of the umbilicus as the port site for the laparoscope and therefore we will plan to repair the umbilical hernia without mesh on completion of the procedure. Patient expressed understanding and scheduled a.m. 07/28/2020. OPERATIVE NOTE: Patient was taken to the operating room and placed on the operating table in supine position with bilateral arms out. All bony prominences were padded. SCDs placed. Preoperative time-out taken identifying the patient, procedure, operative site, surgical staff. General anesthesia was induced. Patient was intubated. The abdomen was clipped, prepped, and draped in the standard surgical fashion. Left arm was tucked. All bony prominences well padded. SCDs were intact. Patient is on scheduled IV antibiotics. The umbilical hernia was identified and elevated using forceps. An umbilical incision was made and the umbilical fat identified. The umbilical fat was excised and the umbilicus identified and the fascia noted. The fascial defect was approximately a centimeter circumferentially. This defect was utilized and entry of the abdomen obtained using the open Tarik technique without complication. A 12 mm Tarik trocar inserted and the abdomen insufflated to 12 to 15 mmHg. Patient tolerated the insufflation well. Laparoscope inserted. The abdomen inspected. The liver, omentum, stomach portions of small and large intestine to be identified were otherwise within normal limits. The pelvis and groins were otherwise within normal limits. In the right lower quadrant, inflamed appendix clearly identified. Secondary trocars placed under direct visualization beginning with a 12 mm left lower quadrant followed by 5 mm suprapubic. No injury from secondary trocar placement identified. Laparoscopic grasper was used and the appendix was grabbed and mobilized. The mesoappendix was noted. The base of the appendix noted. The cecum was identified. Tenia followed to the confluence of the base was identified. A window was made in the base of the appendix in the mesoappendix. A laparoscopic linear stapler was inserted and the appendix was divided at the base without complication. In a similar fashion, a laparoscopic linear stapler was used. The mesoappendix was ligated and divided. Mild oozing noted from the staple line. Laparoscopic clips were used to obtain hemostasis. Following this, good hemostasis noted. Both the staple lines were intact, hemostatic, and viable. The right lower quadrant and pelvis were slightly irrigated. The serous fluid that was identified and evacuated. No intra, pre, or postoperative complications directly identified. At this time, we began the conclusion of the procedure. Laparoscopic trocars removed under direct visualization followed by an umbilical trocar site and desufflation of the abdomen. The fascial edges of the umbilical site were freshened up and clearly identified. They were reapproximated using [id number] #0 Vicryl suture. Given the patient's preoperative diagnosis and the wound classification, a mesh was not used to repair this hernia. The left lower quadrant port site fascia was reapproximated using [id number] #0 Vicryl suture followed by reapproximating of skin incisions using 4-0 Monocryl subcuticular interrupted sutures. The wounds were cleansed and skin glue and Steri-Strips applied. Patient tolerated the procedure well, was extubated, taken to postanesthetic care unit in stable condition. Xavier Pizarro M.D. DR: ASHLY JOB#: [id number] CC:
--- NOTE | 2020-07-28 19:15 | NUR ---
NURSE HAND-OFF: Important Events on Shift: Laparoscopic appendectomy Patient Status: stable Diet: regular Pending Orders: n/a Pending Results/Labs:n/a Pending MD notification:n/a Latest Vital Signs: Temperature 97.9 , Pulse 67 , B/P 121 /66 , Respiratory Rate 18 , O2 SAT 96 , Room Air, O2 Flow Rate 6.0 . Vital Sign Comment: stable Latest Vizcaino Fall Score: 35 Fall Risk: Medium Risk Safety Measures: Call light Within Reach, Bed Alarm , Side Rails Side Rails x2, Bed position Low and Locked. Fall Precautions: Patient Fall Education Report given to KRISTEL Cheema.
--- NOTE | 2020-07-28 20:00 | NUR ---
NURSE NOTES: Received patient awake in bed, c/o mild pain at this time, will ask for pain medication "closer to bedtime". Surgery dressing dermabond and steri strips, asymptomatic, dry and intact. IV access patent, running IVF maintenance, patient tolerating well. Bed low and locked, belongings and call light within reach.
[2020-07-29] VITALS: BP 121/66
[2020-07-29 04:00] VITALS: BP 118/67
[2020-07-29] MEDS: HYDROcodone/Acetamin 5/325 tab ORAL PRN (04:51)
[2020-07-29] MEDS: Piperacillin/Tazobactam 3.375 GM in NS 110 ML IVPB SCH (05:09)
[2020-07-29 06:23] LABS: BASOPHILS % (AUTO) 0.3 % (0.0-2.0); HEMATOCRIT 34.7 % (42.0-52.0); HEMOGLOBIN 12.1 G/DL (14.2-18.0); LYMPHOCYTES % (AUTO) 19.2 % (20.0-45.0); MEAN CORPUSCULAR VOLUME 92 FL (80-99); MONOCYTES % (AUTO) 7.9 % (1.0-10.0); NEUTROPHILS % (AUTO) 72.7 % (45.0-75.0); PLATELET COUNT 170 K/UL (150-450); RED BLOOD COUNT 3.79 M/UL (4.70-6.10); RED CELL DISTRIBUTION WIDTH 12.7 % (11.6-14.8); WHITE BLOOD COUNT 9.2 K/UL (4.8-10.8)
[2020-07-29 06:48] LABS: ANION GAP 6 mmol/L (5-15); BLOOD UREA NITROGEN 9 mg/dL (7-18); CALCIUM 8.2 MG/DL (8.5-10.1); CARBON DIOXIDE 26 MMOL/L (21-32); CHLORIDE 109 MMOL/L (98-107); POTASSIUM 3.9 MMOL/L (3.5-5.1); SODIUM 141 MMOL/L (136-145)
--- NOTE | 2020-07-29 07:25 | NUR ---
NURSE NOTES: WALKING ROUNDS DONE WITH NIGHT RN. PATIENT IN BED AWAKE AND ALERT.QUESTIONS ANSWERED, NEEDS MET. DISCUSSED PLAN OF CARE THE DAY. VERBALIZED UNDERSTANDING. PASSING FLATUS, TOLERATING PO WELL. BED IN LOW AND LOCKED POSITION. CALL LIGHT WITHIN REACH.
--- NOTE | 2020-07-29 07:37 | NUR ---
HAND-OFF: Report given to KRISTEL Whitlock.
[2020-07-29 08:00] VITALS: BP 140/75
[2020-07-29] MEDS: BuPROPion XL 150mg tab ORAL SCH (08:23)
--- NOTE | 2020-07-29 10:30 | NUR ---
P.T/REHAB NOTE: P.T evaluation completed. Pt functioning independently within surgical guidelines. Current functional status does not warrant skilled P.T services. Encouraged pt OOB activities i.e OOB during meals and ambulation as tolerated. Pt also instructed on deep breathing ex's qhr.Pt verbalized understanding. DC P.T services. Thank you for this referral. Addendum: 07/29/20 at 1031 by MARKO ABDUL PT Amended: Links added.
--- NOTE | 2020-07-29 11:30 | NUR ---
NURSE NOTES: PATIENT DOING VERY WELL TODAY. AMBULATING. TOLERATING PO. PAIN CONTROLLED. VSS.AFEBRILE. DISCHARGE ORDER RECEIVED. PRESCRIPTION SENT TO [facility].PATIENT INFORMED.
[2020-07-29] MEDS ORDERED: ACETAMINOPHEN-1 EAC1 ORAL (11:51)
[2020-07-29] MEDS ORDERED: COLACE100 MG ORAL (11:53)
--- NOTE | 2020-07-29 12:30 | NUR ---
NURSE NOTES: DISCHARGE INSTRUCTIONS REVIEWED WITH PATIENT AT BEDSIDE. MEDICATIONS FOR HOME EXPLAINED AND REVIEWED. PATIENT CARE EDUCATION GIVEN.VERBALIZED UNDERSTANDING. ALL BELONGINGS RETURNED TO PATIENT. WILL F/U WITH DR. JAMESON DISCUSSED.
--- NOTE | 2020-07-29 15:16 | NUR ---
INSURANCE CLINICALS/DC INSTRUCTIONS/HP FAXED TO [facility] (07/27-07/29) FX [phone] PH [phone]
--- NOTE | 2020-07-30 14:25 | Discharge Summary ---
Discharge Summary Discharge Summary _ DATE OF ADMISSION: 07/27/2020 DATE OF DISCHARGE: 07/29/2020 DISCHARGED BY: Dr. Barbosa REASON FOR ADMISSION: 59 years old male presented to emergency department with right-sided lower abdominal pain, graded 7 out of 10 without radiation. Patient denied having any pain like this before . No vomiting . Patient had bowel movement , Upon evaluation vital signs were stable. Laboratory work-up revealed leukocytosis WBC 13 , stable hemoglobin, hematocrit and platelet count. Urinalysis revealed no evidence of urinary tract infection . Stable electrolytes and renal parameters . Glucose 130. Stable LFT and lipase EKG revealed sinus rhythm, no acute ischemic changes. CT scan of the abdomen and pelvis showed inflamed appendix, consistent with acute appendicitis without free air of obstruction or abscess. Patient subsequently admitted with acute appendicitis for further management CONSULTANTS: surgery Dr. Pizarro [facility]: Patient admitted to medical surgical floor Patient was kept n.p.o. Patient started on the IV fluids. Pain management was addressed. Surgeon seen and evaluated patient. Patient subsequently undergone laparoscopic appendectomy , umbilical hernia repair, open without mesh on 07/28 . Course of recovery was uneventful. Pain management was addressed . Patient slowly started on diet. Symptomatic treatment provided as needed. Patient was able to tolerate diet. Pain controlled. Patient clinically stabilized and was ready for discharge . FINAL DIAGNOSES: Acute appendicitis Status post laparoscopic appendectomy, umbilical hernia repair, open without me sh 07/28 DISCHARGE MEDICATIONS: See Medication Reconciliation list. DISCHARGE INSTRUCTIONS: Patient was discharged home. Follow-up with a surgeon as advised I have been assigned to dictate discharge summary for this account. I was not involved in the patient's management. Mena Conti NP Jul 30, 2020 14:25
--- NOTE | 2020-07-30 15:38 | NUR ---
INSURANCE DC SUMMARY FAXED TO [facility] FX [phone]
== END 2020-07-29 12:45 | disposition home or self-care (01) | DRG 343 ==
LOC: EMR 09:59 → 3E 10:39 → EDBEDREQ 13:50
DX: K35.80 Unspecified acute appendicitis (principal); E03.9 Hypothyroidism, unspecified; R31.0 Gross hematuria; K42.9 Umbilical hernia without obstruction or gangrene
CPT/HCPCS: 36415; 74176; 80048; 80053; 81003; 83690; 85007; 85025; 85610; 85730; 86850; 86900; 86901; 93005; 94003; 94150; 96361; 96365; 96375; 99285; J2405; J2710; J2765; J7030; U0002